=== PATIENT | female | born 1995 | race American Indian/Alaskan Native ===

== ENCOUNTER 2019-02-14 15:14 | Emergency (ER) | payer BC, OTHER ==
[2019-02-14 15:40] VITALS: BP 144/92
--- NOTE | 2019-02-14 15:40 | Emergency Department Report ---
Chief Complaint: Nausea/Vomiting/Diarrhea Stated Complaint: STOMACH VIRUS Time Seen by Provider: 02/14/19 15:32 - HPI History of Present Illness: This is a 23 y.o. F. that presents to the ER with nausea, vomiting, and diarrhea for 1 day. Patient reports vomiting resolved and diarrhea once today. She is taking imodium which improved symptoms. Patient states multiple people at her job with similar symptoms. Her job sent her home today and instructed to return with a doctor note. Patient states she went to Urgent Care and they where closed. She denies fever, chills, abdominal pain, chest pain, palpitations, wheezing, or headaches. - Exam Vital Signs: Vital Signs 02/14/19 15:37 Temperature 99.2 F Pulse Rate 96 H Respiratory 18 Rate Blood Pressure 144/92 O2 Sat by Pulse 100 Oximetry MSE screening note: Focused history and physical exam performed. Due to findings the following was ordered: ED Medical Decision Making - Medical Decision Making This is a 23-year-old female that presents with N/V/D x 1 week. Patient is nonfebrile and normal heart rate. Patient is stable and was examined by me. Patient reports feeling better and only requesting a doctor note to return to work. This is a non-emergent complain.t Patient was instructed to increase hydration to avoid dehydration. Follow-up with a primary care doctor in 3-5 days or if symptoms worsen and continue return to emergency room as soon as possible. At time time of discharge, the patient does not seem toxic or ill in appearance. No acute signs of distress noted. Patient agrees to discharge treatment plan of care. Return to work tomorrow. ED Disposition for MSE Clinical Impression: Feared complaint without diagnosis Disposition: DC-01 TO HOME OR SELFCARE Is pt being admited?: No Condition: Stable Instructions: Acute Nausea and Vomiting (ED) Additional Instructions: Follow-up with a primary care doctor in 3-5 days or if symptoms worsen and continue return to the emergency department as soon as possible. Referrals: [facility] [Outside] - 3-5 Days [facility] [Outside] - 3-5 Days ERNIE REDDING MD [Staff Physician] - 3-5 Days Forms: Work/School Release Form(ED) Time of Disposition: 15:41
== END 2019-02-14 16:03 | disposition home or self-care (01) ==
LOC: ED 15:14
DX: R11.2 Nausea with vomiting, unspecified (principal); R19.7 Diarrhea, unspecified; Z71.1 Person with feared health complaint in whom no diagnosis is made
CPT/HCPCS: 99282

== ENCOUNTER 2019-03-24 11:34 | Emergency (ER) | payer BC ==
--- NOTE | 2019-03-24 12:25 | Event Note ---
ED Screening Note Date of service: 03/24/19 Time: 12:24 ED Screening Note: 23 y o f presents with sob, fever, coughing and generalized body aches Lmp This initial assessment/diagnostic orders/clinical plan/treatment(s) is/are subject to change based on patients health status, clinical progression and re- assessment by fellow clinical providers in the ED. Further treatment and workup at subsequent clinical providers discretion. Patient/guardian urged not to elope from the ED as their condition may be serious if not clinically assessed and managed. Initial orders include: cxr
[2019-03-24] MEDS ORDERED: IBUPROFEN 600 MG TAB PO ONE ×2 (12:26→12:28)
--- NOTE | 2019-03-24 13:04 | XRay Report ---
CHEST 2 VIEWS INDICATION / CLINICAL INFORMATION: Fever. COMPARISON: None available. FINDINGS: SUPPORT DEVICES: None. HEART / MEDIASTINUM: The heart size and pulmonary vasculature are normal. LUNGS / PLEURA: No significant pulmonary or pleural abnormality. No pneumothorax. ADDITIONAL FINDINGS: No significant additional findings. IMPRESSION: No acute findings. There is no evidence of pneumonia. Signer Name: Curtis Caldwell MD Signed: 03/24/2019 12:59 PM Workstation Name: [id number]
--- NOTE | 2019-03-24 14:47 | Emergency Department Report ---
Minor Respiratory - HPI Chief Complaint: Upper Respiratory Infection Stated Complaint: SOB, FEVER, MIRGRANIE Time Seen by Provider: 03/24/19 14:44 Duration: 2 Days Pain Location: Chest Severity: mild Minor Respiratory: Yes Sore Throat, Yes Able to Tolerate Fluids, Yes Fever, No Rhinorrhea, No Ear Pain, No Cough, No Sick Contacts, No Hemoptysis, No Chest Pain, No Shortness of Breath Other History: 23 YO FEMALE COMES TO ER WITH SINUS PAIN AND SORE THROAT. MILD COUGH. POS FEVER. NO MYALGIA. AMBULATORY AND NON ILL APPEARING ON EXAM. ED Review of Systems ROS: Stated complaint: SOB, FEVER, MIRGRANIE Other details as noted in HPI Comment: All other systems reviewed and negative ED Past Medical Hx - Past Medical History Previous Medical History?: No - Surgical History Past Surgical History?: No - Family History Family history: no significant - Social History Smoking Status: Never Smoker Substance Use Type: Marijuana - Medications Home Medications: Home Medications Medication Instructions Recorded Confirmed Last Taken Type Acetaminophen [Tylenol] 650 mg PO ONCE PRN 08/15/14 08/15/14 08/14/14 18:00 History 650 MG Ondansetron [Zofran Odt] 4 mg PO Q6H #20 tab.rapdis 08/15/14 Unknown Rx oxyCODONE /ACETAMINOPHEN [Percocet 1 tab PO Q6HR PRN #20 tablet 08/15/14 Unknown Rx 5/325] Naproxen [Naprosyn] 500 mg PO BID #20 tablet 01/13/18 Unknown Rx Sulfamethoxazole/Trimethoprim 1 each PO BID #14 tablet 01/13/18 Unknown Rx [Bactrim DS TAB] Amoxicillin [Trimox CAP] 500 mg PO BID #20 capsule 03/24/19 Unknown Rx predniSONE [Deltasone] 20 mg PO DAILY #5 tablet 03/24/19 Unknown Rx Minor Respiratory Exam - Exam General: Vital signs noted. No distress. Alert and acting appropriately. HEENT: Yes Pharyngeal Erythema, Yes Moist Mucous Membranes, No Pharyngeal Exudates, No Rhinorrhea, No Conjuctival Injection, No Frontal Tenderness, No Maxillary Tenderness Ear: Neither TM Bulge, Neither TM Erythema, Neither EAC Pain, Neither EAC Discharge Neck: Yes Supple, No Adenopathy Lungs: Yes Good Air Exchange, No Wheezes, No Ronchi, No Stridor, No Cough, No Labored Respirations, No Retractions, No Use of Accessory Muscles, No Other Abnormal Lung Sounds Heart: Yes Regular, No Murmur Abdomen: Yes Normal Bowel Sounds, No Tenderness, No Peritoneal Signs Skin: No Rash, No Edema Neurologic: Alert and oriented, no deficits. Musculoskeletal: Unremarkable. ED Course Vital Signs 03/24/19 03/24/19 11:54 12:27 Temperature 100.5 F H Pulse Rate 122 H Respiratory 18 18 Rate Blood Pressure 100/53 O2 Sat by Pulse 98 Oximetry ED Medical Decision Making - Radiology Data Radiology results: report reviewed, image reviewed - Medical Decision Making NO FLU LIKE MYALGIA XRAY NOTED POS SINUS PAIN ON PALP UVULA RED AND INFLAMED VSS TAKING PO AMBULATORY NAD DC HOME WITH DC PLAN OF CARE AND PCP FOLLOW UP Vital Signs 03/24/19 03/24/19 11:54 12:27 Temperature 100.5 F H Pulse Rate 122 H Respiratory 18 18 Rate Blood Pressure 100/53 O2 Sat by Pulse 98 Oximetry - Differential Diagnosis SIMPLE URI Critical care attestation.: If time is entered above; I have spent that time in minutes in the direct care of this critically ill patient, excluding procedure time. ED Disposition Clinical Impression: URTI (acute upper respiratory infection), Sinusitis, Pharyngitis Disposition: DC-01 TO HOME OR SELFCARE Is pt being admited?: No Does the pt Need Aspirin: No Condition: Stable Instructions: Upper Respiratory Infection (ED) Additional Instructions: STAY WELL HYDRATED MOTRIN OR TYLENOL FOR PAIN OR FEVER MED ORDERED TODAY UNTIL GONE FOLLOW UP WITH PCP IN 48 HOURS IF YOU ARE NO BETTER Prescriptions: predniSONE [Deltasone] 20 mg PO DAILY #5 tablet Amoxicillin [Trimox CAP] 500 mg PO BID #20 capsule Referrals: ERNIE REDDING MD [Staff Physician] - 3-5 Days Time of Disposition: 14:45
[2019-03-24 15:55] VITALS: BP 106/60
== END 2019-03-24 15:20 | disposition home or self-care (01) ==
LOC: ED 11:34
DX: J02.9 Acute pharyngitis, unspecified (principal); J32.9 Chronic sinusitis, unspecified; F12.10 Cannabis abuse, uncomplicated; Z79.2 Long term (current) use of antibiotics; Z79.899 Other long term (current) drug therapy
CPT/HCPCS: 71046

== ENCOUNTER 2020-08-04 09:40 | Emergency (ER) | payer BC ==
--- NOTE | 2020-08-04 10:16 | Event Note ---
ED Screening Note ED Screening Note: VAG BLEED IN PREG This initial assessment/diagnostic orders/clinical plan/treatment(s) is/are subject to change based on patients health status, clinical progression and re- assessment by fellow clinical providers in the ED. Further treatment and workup at subsequent clinical providers discretion. Patient/guardian urged not to elope from the ED as their condition may be serious if not clinically assessed and managed. Initial orders include: LABS HCG
[2020-08-04 10:17] VITALS: BP 142/93
[2020-08-04 10:57] LABS: Basophils % (Auto) 0.7 % (0.0-1.8); Eosinophils % (Auto) 0.7 % (0.0-4.3); Hematocrit 36.1 % (30.3-42.9); Hemoglobin 12.1 gm/dl (10.1-14.3); Lymphocytes # (Auto) 1.4 K/mm3 (1.2-5.4); Lymphocytes % (Auto) 35.2 % (13.4-35.0); Mean Corpuscular HGB Conc 34 % (30-34); Mean Corpuscular Volume 89 fl (79-97); Monocytes # (Auto) 0.2 K/mm3 (0.0-0.8); Monocytes % (Auto) 6.3 % (0.0-7.3); Platelet Count 258 K/mm3 (140-440); Red Blood Count 4.03 M/mm3 (3.65-5.03); Red Cell Distribution Width 13.5 % (13.2-15.2)
[2020-08-04 11:15] LABS: Blood Urea Nitrogen 7 mg/dL (7-17); Calcium 8.5 mg/dL (8.4-10.2); Hemolysis Index 4
[2020-08-04 11:25] LABS: BUN/Creatinine Ratio 14
--- NOTE | 2020-08-04 12:09 | Emergency Department Report ---
ED Female HPI - General Chief complaint: Vaginal Bleeding Stated complaint: VAG SPOTTING Time Seen by Provider: 08/04/20 10:16 Source: patient Mode of arrival: Ambulatory Limitations: No Limitations - History of Present Illness Initial comments: Patient is a 24-year-old -[place]namese female that comes to the ER with nausea and vomiting of and vaginal spotting as told in triage. However, when she came to the back she states that her only reason for being here is vaginal spotting. She denies any nausea or vomiting. Last menstrual pe riod she reports being June 11. She has been one time before and lost the fetus at . Patient states that she has had mild cramping and spotting. She has not seen an FRONT FACER. She denies any dysuria. She denies any vaginal discharge. She denies any fever or chills. She denies back pain. Patient is nontoxic on initial exam. MD Complaint: vaginal bleeding -: Gradual Severity: mild Quality: cramping Consistency: intermittent Improves with: none Worsens with: none Are you Now?: Yes Associated Symptoms: denies other symptoms - Related Data Home Medications Medication Instructions Recorded Confirmed Last Taken Acetaminophen [Tylenol] 650 mg PO ONCE PRN 08/15/14 08/15/14 08/14/14 18:00 650 MG Previous Rx's Medication Instructions Recorded Last Taken Type Ondansetron [Zofran Odt] 4 mg PO Q6H #20 tab.rapdis 08/15/14 Unknown Rx oxyCODONE /ACETAMINOPHEN [Percocet 1 tab PO Q6HR PRN #20 tablet 08/15/14 Unknown Rx 5/325] Naproxen [Naprosyn] 500 mg PO BID #20 tablet 01/13/18 Unknown Rx Sulfamethoxazole/Trimethoprim 1 each PO BID #14 tablet 01/13/18 Unknown Rx [Bactrim DS TAB] Amoxicillin [Trimox CAP] 500 mg PO BID #20 capsule 03/24/19 Unknown Rx predniSONE [Deltasone] 20 mg PO DAILY #5 tablet 03/24/19 Unknown Rx Allergies Allergy/AdvReac Type Severity Reaction Status Date / Time No Known Allergies Allergy Verified 02/14/19 15:26 ED Review of Systems ROS: Stated complaint: VAG SPOTTING Other details as noted in HPI Comment: All other systems reviewed and negative ED Past Medical Hx - Past Medical History Previous Medical History?: No - Surgical History Past Surgical History?: Yes Additional Surgical History: - Family History Family history: no significant - Social History Smoking Status: Never Smoker Substance Use Type: Marijuana - Medications Home Medications: Home Medications Medication Instructions Recorded Confirmed Last Taken Type Acetaminophen [Tylenol] 650 mg PO ONCE PRN 08/15/14 08/15/14 08/14/14 18:00 History 650 MG Ondansetron [Zofran Odt] 4 mg PO Q6H #20 tab.rapdis 08/15/14 Unknown Rx oxyCODONE /ACETAMINOPHEN [Percocet 1 tab PO Q6HR PRN #20 tablet 08/15/14 Unknown Rx 5/325] Naproxen [Naprosyn] 500 mg PO BID #20 tablet 01/13/18 Unknown Rx Sulfamethoxazole/Trimethoprim 1 each PO BID #14 tablet 01/13/18 Unknown Rx [Bactrim DS TAB] Amoxicillin [Trimox CAP] 500 mg PO BID #20 capsule 03/24/19 Unknown Rx predniSONE [Deltasone] 20 mg PO DAILY #5 tablet 03/24/19 Unknown Rx ED Physical Exam - General Limitations: No Limitations General appearance: alert, in no apparent distress - Head Head exam: Present: atraumatic, normocephalic - Eye Eye exam: Present: normal appearance - ENT ENT exam: Present: mucous membranes moist - Neck Neck exam: Present: normal inspection - Respiratory Respiratory exam: Present: normal lung sounds bilaterally. Absent: respiratory distress - Cardiovascular Cardiovascular Exam: Present: regular rate, normal rhythm. Absent: systolic murmur, diastolic murmur, rubs, gallop - GI/Abdominal GI/Abdominal exam: Present: soft, normal bowel sounds - Bi-manual exam: Present: normal bi-manual exam. Absent: cervical motion tendernes, adnexal tenderness, adnexal mass, uterine enlargement, uterine tenderness - Extremities Exam Extremities exam: Present: normal inspection - Back Exam Back exam: Present: normal inspection - Neurological Exam Neurological exam: Present: alert, oriented X3 - Psychiatric Psychiatric exam: Present: normal affect, normal mood - Skin Skin exam: Present: warm, dry, intact, normal color. Absent: rash ED Course Vital Signs 08/04/20 10:16 Temperature 98.8 F Pulse Rate 81 Respiratory 18 Rate Blood Pressure 142/93 [Right] O2 Sat by Pulse 100 Oximetry ED Medical Decision Making - Lab Data Result diagrams: 08/04/20 10:35 08/04/20 10:35 - Radiology Data Radiology results: report reviewed, image reviewed see report - Medical Decision Making Lab Results 08/04/20 08/04/20 08/04/20 Range/Units 10:35 10:35 10:35 WBC 3.9 L (4.5-11.0) K/mm3 RBC 4.03 (3.65-5.03) M/mm3 Hgb 12.1 (10.1-14.3) gm/dl Hct 36.1 (30.3-42.9) % MCV 89 (79-97) fl MCH 30 (28-32) pg MCHC 34 (30-34) % RDW 13.5 (13.2-15.2) % Plt Count 258 (140-440) K/mm3 Lymph % (Auto) 35.2 H (13.4-35.0) % Miner % (Auto) 6.3 (0.0-7.3) % Eos % (Auto) 0.7 (0.0-4.3) % Baso % (Auto) 0.7 (0.0-1.8) % Lymph # (Auto) 1.4 (1.2-5.4) K/mm3 Miner # (Auto) 0.2 (0.0-0.8) K/mm3 Eos # (Auto) 0.0 (0.0-0.4) K/mm3 Baso # (Auto) 0.0 (0.0-0.1) K/mm3 Seg Neutrophils % 57.1 (40.0-70.0) % Seg Neutrophils # 2.2 (1.8-7.7) K/mm3 Sodium 138 (137-145) mmol/L Potassium 3.6 (3.6-5.0) mmol/L Chloride 104.2 (98-107) mmol/L Carbon Dioxide 23 (22-30) mmol/L Anion Gap 14 mmol/L BUN 7 (7-17) mg/dL Creatinine 0.5 L (0.6-1.2) mg/dL Estimated GFR > 60 ml/min BUN/Creatinine Ratio 14 % Glucose 95 (65-100) mg/dL Calcium 8.5 (8.4-10.2) mg/dL HCG, Quant 4092 H (0-4) mIU/mL Blood Type Ord Rhogam Gestat Weeks WEEKS 08/04/20 Range/Units 10:35 WBC (4.5-11.0) K/mm3 RBC (3.65-5.03) M/mm3 Hgb (10.1-14.3) gm/dl Hct (30.3-42.9) % MCV (79-97) fl MCH (28-32) pg MCHC (30-34) % RDW (13.2-15.2) % Plt Count (140-440) K/mm3 Lymph % (Auto) (13.4-35.0) % Miner % (Auto) (0.0-7.3) % Eos % (Auto) (0.0-4.3) % Baso % (Auto) (0.0-1.8) % Lymph # (Auto) (1.2-5.4) K/mm3 Miner # (Auto) (0.0-0.8) K/mm3 Eos # (Auto) (0.0-0.4) K/mm3 Baso # (Auto) (0.0-0.1) K/mm3 Seg Neutrophils % (40.0-70.0) % Seg Neutrophils # (1.8-7.7) K/mm3 Sodium (137-145) mmol/L Potassium (3.6-5.0) mmol/L Chloride (98-107) mmol/L Carbon Dioxide (22-30) mmol/L Anion Gap mmol/L BUN (7-17) mg/dL Creatinine (0.6-1.2) mg/dL Estimated GFR ml/min BUN/Creatinine Ratio % Glucose (65-100) mg/dL Calcium (8.4-10.2) mg/dL HCG, Quant (0-4) mIU/mL Blood Type O POSITIVE Ord Rhogam Gestat Weeks Rh pos WEEKS Vital Signs 08/04/20 10:16 Temperature 98.8 F Pulse Rate 81 Respiratory 18 Rate Blood Pressure 142/93 [Right] O2 Sat by Pulse 100 Oximetry labs noted, hCG low for gestation reported. rh pos us noted, no ectopic. See report. ua noted, no UTI Patient is being discharged home with discharge instructions including pelvic rest and FRONT FACER follow-up in 48 hours. She verbalizes understanding of the discharge plan of care. On discharge patient is in no acute distress. Vital signs stable. She is taking p.o. Ambulatory without difficulty. - Differential Diagnosis ro uti/ab/ectopic Critical care attestation.: If time is entered above; I have spent that time in minutes in the direct care of this critically ill patient, excluding procedure time. ED Disposition Clinical Impression: , Vaginal bleeding during Disposition: - TO HOME OR SELFCARE Is pt being admited?: No Does the pt Need Aspirin: No Condition: Stable Instructions: How a Baby Grows During Additional Instructions: pelvic rest hydrate well with water tylenol for pain see obgy in 48 hours for repeat tests referral below Referrals: PRIMARY CAREMD [Primary Care Provider] - 3-5 Days YEIMI THORPE MD [Staff Physician] - 3-5 Days Time of Disposition: 13:17
--- NOTE | 2020-08-04 13:02 | Ultrasound Report ---
OB Ultrasound HISTORY: VAG BLEED IN PREG. TECHNIQUE: Grayscale and color imaging performed. COMPARISON: None FINDINGS: Transabdominal and endovaginal imaging was performed. Uterus measures 9.4 x 5.0 x 6.3 cm with endometrial echocomplex measuring 1.8 cm. There is an intraut erine gestational sac with mean diameter of 1 cm which corresponds with an EGA of 5 weeks and 5 days. There is also a yolk sac. No pole is identified. Both ovaries are normal in size and appearance with preserved blood flow. Tiny follicles are seen jaymie aterally. There is trace simple pelvic free fluid. IMPRESSION: Intrauterine gestational sac but no pole identified. Correlate with beta hCG level and recommend close sonographic follow-up. Otherwise nothing acute. Signer Name: Ronald Tavares MD Signed: 08/04/2020 12:58 PM Workstation Name: [id number]
[2020-08-04 13:30] LABS: Bilirubin,Urine NEG (Negative); Blood,Urine NEG (Negative); Color,Urine Yellow (Yellow); Mucus,Urine FEW /HPF; Protein,Urine <15 mg/dL mg/dL (Negative); Urobilinogen,Urine < 2.0 mg/dL (<2.0)
== END 2020-08-04 14:33 | disposition home or self-care (01) ==
LOC: ED 09:40
DX: O20.8 Other hemorrhage in early pregnancy (principal); Z98.890 Other specified postprocedural states; Z79.899 Other long term (current) drug therapy; Z3A.01 Less than 8 weeks gestation of pregnancy
CPT/HCPCS: 36415; 76801; 76817; 80048; 81001; 84702; 85025; 86900; 86901

== ENCOUNTER 2020-12-13 21:32 | Emergency (ER) | payer BC ==
[2020-12-13 22:30] VITALS: BP 112/81
[2020-12-13 23:46] LABS: Basophils % (Auto) 0.2 % (0.0-1.8); Eosinophils % (Auto) 0.4 % (0.0-4.3); Hematocrit 34.8 % (30.3-42.9); Hemoglobin 11.9 gm/dl (10.1-14.3); Lymphocytes # (Auto) 1.1 K/mm3 (1.2-5.4); Lymphocytes % (Auto) 12.4 % (13.4-35.0); Mean Corpuscular HGB Conc 34 % (30-34); Mean Corpuscular Volume 94 fl (79-97); Monocytes # (Auto) 0.5 K/mm3 (0.0-0.8); Monocytes % (Auto) 6.2 % (0.0-7.3); Platelet Count 211 K/mm3 (140-440); Red Cell Distribution Width 13.6 % (13.2-15.2)
[2020-12-14 00:08] LABS: Alanine Aminotransferase 16 units/L (7-56); Albumin 3.9 g/dL (3.9-5); Blood Urea Nitrogen 8 mg/dL (7-17); Calcium 9.2 mg/dL (8.4-10.2); Hemolysis Index 0
[2020-12-14 00:30] LABS: BUN/Creatinine Ratio 16
--- NOTE | 2020-12-14 01:28 | Emergency Department Report ---
ED General Adult HPI - General Chief complaint: Abdominal Pain Stated complaint: 24 WEEKS CHEST PAIN X2 HOURS Time Seen by Provider: 12/13/20 23:00 Source: patient Mode of arrival: Ambulatory Limitations: No Limitations - History of Present Illness Initial comments: The patient presents to the emergency department with a chief complaint of right upper quadrant abdominal pain has been present for the last day. Patient is approximately 24 weeks with her 2nd . Patient complains of nausea but denies any vomiting or diarrhea. Patient denies any vaginal discharge, vaginal bleeding, or pelvic pain. -: Sudden Location: abdomen Radiation: non-radiation Severity scale (0 -10): 3 Quality: dull Consistency: constant Improves with: none Worsens with: none Associated Symptoms: denies other symptoms Treatments Prior to Arrival: none - Related Data Home Medications Medication Instructions Recorded Confirmed Last Taken Acetaminophen [Tylenol] 650 mg PO ONCE PRN 08/15/14 08/15/14 08/14/14 18:00 650 MG Previous Rx's Medication Instructions Recorded Last Taken Type Ondansetron [Zofran Odt] 4 mg PO Q6H #20 tab.rapdis 08/15/14 Unknown Rx oxyCODONE /ACETAMINOPHEN [Percocet 1 tab PO Q6HR PRN #20 tablet 08/15/14 Unknown Rx 5/325] Naproxen [Naprosyn] 500 mg PO BID #20 tablet 01/13/18 Unknown Rx Sulfamethoxazole/Trimethoprim 1 each PO BID #14 tablet 01/13/18 Unknown Rx [Bactrim DS TAB] Amoxicillin [Trimox CAP] 500 mg PO BID #20 capsule 03/24/19 Unknown Rx predniSONE [Deltasone] 20 mg PO DAILY #5 tablet 03/24/19 Unknown Rx Allergies Allergy/AdvReac Type Severity Reaction Status Date / Time No Known Allergies Allergy Verified 12/13/20 22:30 ED Review of Systems ROS: Stated complaint: 24 WEEKS CHEST PAIN X2 HOURS Other details as noted in HPI Comment: All other systems reviewed and negative Constitutional: denies: chills, fever Eyes: denies: eye pain, eye discharge, vision change ENT: denies: ear pain, throat pain Respiratory: denies: cough, shortness of breath, wheezing Cardiovascular: denies: chest pain, palpitations Endocrine: no symptoms reported Gastrointestinal: abdominal pain. denies: nausea, diarrhea Genitourinary: denies: urgency, dysuria, discharge Musculoskeletal: denies: back pain, joint swelling, arthralgia Skin: denies: rash, lesions Neurological: denies: headache, weakness, paresthesias Psychiatric: denies: anxiety, depression Hematological/Lymphatic: denies: easy bleeding, easy bruising ED Past Medical Hx - Past Medical History Previous Medical History?: No - Surgical History Past Surgical History?: No Additional Surgical History: - Social History Smoking Status: Never Smoker - Medications Home Medications: Home Medications Medication Instructions Recorded Confirmed Last Taken Type Acetaminophen [Tylenol] 650 mg PO ONCE PRN 08/15/14 08/15/14 08/14/14 18:00 History 650 MG Ondansetron [Zofran Odt] 4 mg PO Q6H #20 tab.rapdis 08/15/14 Unknown Rx oxyCODONE /ACETAMINOPHEN [Percocet 1 tab PO Q6HR PRN #20 tablet 08/15/14 Unknown Rx 5/325] Naproxen [Naprosyn] 500 mg PO BID #20 tablet 01/13/18 Unknown Rx Sulfamethoxazole/Trimethoprim 1 each PO BID #14 tablet 01/13/18 Unknown Rx [Bactrim DS TAB] Amoxicillin [Trimox CAP] 500 mg PO BID #20 capsule 03/24/19 Unknown Rx predniSONE [Deltasone] 20 mg PO DAILY #5 tablet 03/24/19 Unknown Rx ED Physical Exam - General Limitations: No Limitations General appearance: alert, in no apparent distress - Head Head exam: Present: atraumatic, normocephalic - Eye Eye exam: Present: normal appearance, PERRL, EOMI - ENT ENT exam: Present: mucous membranes moist - Neck Neck exam: Present: normal inspection - Respiratory Respiratory exam: Present: normal lung sounds bilaterally. Absent: respiratory distress - Cardiovascular Cardiovascular Exam: Present: regular rate, normal rhythm. Absent: systolic murmur, diastolic murmur, rubs, gallop - GI/Abdominal GI/Abdominal exam: Present: soft, tenderness (ttp ruq), normal bowel sounds. Absent: distended - Extremities Exam Extremities exam: Present: normal inspection - Back Exam Back exam: Present: normal inspection - Neurological Exam Neurological exam: Present: alert, oriented X3 - Psychiatric Psychiatric exam: Present: normal affect, normal mood - Skin Skin exam: Present: warm, dry, intact, normal color. Absent: rash ED Course Vital Signs 12/13/20 21:32 Temperature 98.4 F Pulse Rate 95 H Respiratory 18 Rate Blood Pressure 112/81 [Left] O2 Sat by Pulse 100 Oximetry ED Medical Decision Making - Lab Data Result diagrams: 12/13/20 23:09 12/13/20 23:09 Lab Results 12/13/20 12/13/20 Range/Units 23:09 23:09 WBC 8.6 (4.5-11.0) K/mm3 RBC 3.70 (3.65-5.03) M/mm3 Hgb 11.9 (10.1-14.3) gm/dl Hct 34.8 (30.3-42.9) % MCV 94 (79-97) fl MCH 32 (28-32) pg MCHC 34 (30-34) % RDW 13.6 (13.2-15.2) % Plt Count 211 (140-440) K/mm3 Lymph % (Auto) 12.4 L (13.4-35.0) % Beckham % (Auto) 6.2 (0.0-7.3) % Eos % (Auto) 0.4 (0.0-4.3) % Baso % (Auto) 0.2 (0.0-1.8) % Lymph # (Auto) 1.1 L (1.2-5.4) K/mm3 Beckham # (Auto) 0.5 (0.0-0.8) K/mm3 Eos # (Auto) 0.0 (0.0-0.4) K/mm3 Baso # (Auto) 0.0 (0.0-0.1) K/mm3 Seg Neutrophils % 80.8 H (40.0-70.0) % Seg Neutrophils # 6.9 (1.8-7.7) K/mm3 Sodium 136 L (137-145) mmol/L Potassium 4.1 (3.6-5.0) mmol/L Chloride 97.1 L (98-107) mmol/L Carbon Dioxide 21 L (22-30) mmol/L Anion Gap 22 mmol/L BUN 8 (7-17) mg/dL Creatinine 0.5 L (0.6-1.2) mg/dL Estimated GFR > 60 ml/min BUN/Creatinine Ratio 16 % Glucose 98 (65-100) mg/dL Calcium 9.2 (8.4-10.2) mg/dL Magnesium 1.70 (1.7-2.3) mg/dL Total Bilirubin 0.40 (0.1-1.2) mg/dL AST 16 (5-40) units/L ALT 16 (7-56) units/L Alkaline Phosphatase 36 (35-129) units/L Total Protein 6.6 (6.3-8.2) g/dL Albumin 3.9 (3.9-5) g/dL Albumin/Globulin Ratio 1.4 % Lipase 12 L (13-60) units/L - Medical Decision Making Discussed results with patient Critical care attestation.: If time is entered above; I have spent that time in minutes in the direct care of this critically ill patient, excluding procedure time. ED Disposition Clinical Impression: Right upper quadrant abdominal pain, Abdominal pain in Disposition: 01 HOME / SELF CARE / HOMELESS Is pt being admited?: No Does the pt Need Aspirin: No Condition: Stable Instructions: Abdominal Pain (ED), Abdominal Pain, Adult, Abdominal Pain During Additional Instructions: Return if worse Referrals: [facility] [Provider Group] - 3-5 Days Time of Disposition: 02:28
--- NOTE | 2020-12-14 02:15 | Ultrasound Report ---
ULTRASOUND ABDOMEN, LIMITED (RIGHT UPPER QUADRANT) INDICATION: ruq ab pain. COMPARISON: None available. FINDINGS: Pancreas: Visualized portion shows no significant abnormality. Liver: Normal. Gallbladder: Normal. Bile ducts: Normal. Common Bile Duct measures 3 mm. Free fluid: None. Additional Findings: None. IMPRESSION: 1. No sonographic abnormality of the right upper quadrant. Signer Name: Joel Ling MD Signed: 12/14/2020 2:11 AM Workstation Name: [email or web address]
--- NOTE | 2020-12-14 02:24 | Ultrasound Report ---
ULTRASOUND OBSTETRIC INDICATION / CLINICAL INFORMATION: PELVIC PAIN. Clinical Gestational Age (GA): TECHNIQUE: Transabdominal. COMPARISON: None available. FINDINGS: There is a single intrauterine . Biparietal Diameter = 5.8 cm = 23 weeks, 6 day(s). Head Circumference = 20.7 cm = 22 weeks, 6 day(s). Abdominal Circumference = 18 cm = 22 weeks, 6 day(s). Femur Length = 4.4 cm = 24 weeks, 4 day(s). Average Ultrasound Age (AUA) = 23 weeks 3 days Heart Rate: 145 beats per minute. Estimated Weight in grams (if calculated): Estimated Weight Growth Percentile (if calculated): Position: cephalic. Cervix: closed. Length in cm (if measured): 5.4 Placenta: maternal right and free of the os. Amniotic Fluid Volume: normal Amniotic Fluid Index (PRESTON) in cm (if calculated): . Maternal Adnexa: No significant abnormality. IMPRESSION: 1. Single, living intrauterine with estimated sonographic age of 23 weeks, 3 day(s). 2. No significant sonographic abnormality. Signer Name: Joel Ling MD Signed: 12/14/2020 2:20 AM Workstation Name: [id number]
[2020-12-14 02:48] LABS: Bacteria,Urine 1+ /HPF (Negative); Bilirubin,Urine NEG (Negative); Blood,Urine NEG (Negative); Color,Urine Yellow (Yellow); Mucus,Urine FEW /HPF; Protein,Urine <15 mg/dL mg/dL (Negative); Urobilinogen,Urine < 2.0 mg/dL (<2.0)
== END 2020-12-14 02:30 | disposition home or self-care (01) ==
LOC: ED 21:32
DX: O26.892 Other specified pregnancy related conditions, second trimester (principal); R10.11 Right upper quadrant pain; Z3A.24 24 weeks gestation of pregnancy; Z98.890 Other specified postprocedural states
CPT/HCPCS: 36415; 76705; 76805; 80053; 81001; 83690; 83735; 85025; 87086; 99284